=== PATIENT | male | born 1950 | race African-American/Black ===

== ENCOUNTER → 2017-07-16 | Day surgery (SDC) | payer MEDICARE ==
[~2017-07-16] MED LIST: AMLODIPINE BESYL5 MG PO; CEFTRIAXONE SOD 1 GM VIAL ONE; DEXAMETHASONE SOD PHOS INJ 4 MG/ML VIAL ONE; FENTANYL CITRATE/PF 100MCG/2 ML INJ ONE; FLOMAX0.4 MG PO; GENTAMICIN 120MG/NS 100ML 100 ML ONE; HYDROXYZINE HCL25 MG PO; IOPAMIDOL 610MG/1ML 300 MG/ML VIAL IV ONE; LIDOCAINE HCL 2% LOCAL INJ 5 ML SDV VIAL INJ ONE; METFORMIN HCL500 M1 PO; MIDAZOLAM HCL 2 MG/2 ML VIAL ONE; ONDANSETRON HCL INJ 2 MG/ML VIAL ONE; PROPOFOL IV EMULSION 10 MG/ML 20 ML VIAL ONE; SEVOFLURANE INHAL SOLN 250 ML PEN BTL ONE; SIMVASTATIN40 MG PO
--- OUTSIDE RECORDS SUMMARY | 2017-07-16 09:09 | XMS REPORT | Clinical Summary ---
Author Author [facility] Organization [facility] Address Unknown Phone Unavailable Care Team Providers Care Manager Data Warehouse Name Role Phone Hugh Santana MD PCP Allergies Active Allergy Reactions Severity Noted Date Comments Ciprofloxacin 09/18/2016 Iodine 09/18/2016 Shellfish Derived 09/18/2016 Current Medications Prescription Sig. Disp. Refills Start End Date Status Date hydrOXYzine (ATARAX) 25 Take 25 mg by mouth once Active MG tablet a week. lisinopril Take 20 mg by mouth 2 Active (PRINIVIL,ZESTRIL) 20 mg (two) times a day. tablet losartan (COZAAR) 50 MG Take 50 mg by mouth Active tablet daily. simvastatin (ZOCOR) 40 MG Take 40 mg by mouth Active tablet nightly. amLODIPine (NORVASC) 5 mg Take 5 mg by mouth daily. Active tablet aspirin (ECOTRIN) 81 MG Take 81 mg by mouth Active enteric coated tablet daily. cyanocobalamin 500 MCG Take 500 mcg by mouth Active tablet daily. FOLIC ACID/MV,IRON,MIN Take 1 capsule by mouth Active (CENTRUM ORAL) once. linagliptin-metformin Take 1 capsule by mouth 2 Active (JENTADUETO XR) 2.5-1,000 (two) times a day. mg tablet, IR & ER, biphasic 24hr tamsulosin (FLOMAX) 0.4 Take 0.4 mg by mouth Active mg capsule,extended daily. release 24hr Active Problems Problem Noted Date Combined form of senile cataract of both eyes 09/18/2016 Last Assessment & Plan: Mild. Early. Follow. MRx updated. Diabetes mellitus without complication 09/18/2016 Last Assessment & Plan: No signs of DR. Annual exams recommended. Letter to Dr. Max Irizarry Encounters Date Type Specialty Care Team Description 07/03/2017 Hospital Radiology Sandeep Michel, Enlarged prostate with Encounter urinary obstruction 06/23/2017 Transcribe Access Sandeep Michel, Enlarged prostate with Orders urinary obstruction (Primary Dx) 09/18/2016 Office Visit Ophthalmology Nasim López MD Diabetes mellitus without complication (Primary Dx); Combined form of senile cataract of both eyes after 07/15/2016 Family History Medical History Relation Name Comments Diabetes Brother Relation Name Status Comments Brother Social History Tobacco Use Types Packs/Day Years Used Date Never Smoker Alcohol Use Drinks/Week oz/Week Comments Yes OCCASIONAL Sex Assigned at Date Recorded Not on file Last Filed Vital Signs Not on file Plan of Treatment Health Maintenance Due Date Last Done Comments FOOT EXAM 09/20/1961 URINE MICROALBUMIN 09/20/1961 COLONOSCOPY 09/20/2001 ZOSTER VACCINE 2011 PNEUMOCOCCAL 09/20/2016 POLYSACCHARIDE VACCINE AGE 65 AND OVER PNEUMOCOCCAL-13 09/20/2016 INFLUENZA VACCINE 12/24/2016 OPHTHALMOLOGY EXAM 09/18/2017 09/18/2016 Results * ECG 12 lead (07/07/2017 2:12 PM) Component Value Ref Range Ventricular rate 73 Atrial rate 73 IL interval 152 QRSD interval 76 QT interval 386 QTC interval 425 P axis 1 52 QRS axis 1 39 T wave axis 6 EKG impression Normal sinus rhythm with sinus arrhythmia-Normal ECG-No previous ECGs available- Specimen Performing Laboratory [facility] [address] [place] [address] * US Prostate (07/03/2017 1:39 PM) Specimen Performing Laboratory [facility] [address] [place] [address] Narrative PROCEDURE:US PROSTATE CLINICAL HISTORY:N40.1 Benign prostatic hyperplasia with lower urinary tract symptoms, N13.8 Other obstructive and reflux uropathy, N40.1 COMPARISON:None. TECHNIQUE: A transrectal examination of the prostate gland was performed in transverse and sagittal views with color-flow Doppler interrogation. The seminal vesicles were also interrogated. FINDINGS: The prostate gland measures 5.4 cm x 4.6 cm x 5.3 cm. The peripheral zone is homogeneous. No focal lesions are identified. Heterogeneity in echotexture is demonstrated of the central zone with calcification of the prostate at the junction of the central and peripheral zone. No gross abnormality of the seminal vesicles is seen. IMPRESSION: Abnormal study. Benign prostatic hyperplasia. No focal lesions are identified in the peripheral zone. No abnormality of the seminal vesicles is seen. [id number] . 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 TECHNIQUE: A transrectal examination of the prostate gland was performed in transverse and sagittal views with color-flow Doppler interrogation. The seminal vesicles were also interrogated. FINDINGS: The prostate gland measures 5.4 cm x 4.6 cm x 5.3 cm. The peripheral zone is homogeneous. No focal lesions are identified. Heterogeneity in echotexture is demonstrated of the central zone with calcification of the prostate at the junction of the central and peripheral zone. No gross abnormality of the seminal vesicles is seen. IMPRESSION: Abnormal study. Benign prostatic hyperplasia. No focal lesions are identified in the peripheral zone. No abnormality of the seminal vesicles is seen. [id number] . after 07/15/2016 Insurance Payer Benefit Subscriber ID Type Phone Address Plan / Group [facility] [employer] UNITED/[employer] xxxxxxxxx HMO Belinda BELLO
--- NOTE | 2017-07-16 13:12 | Operative Report ---
DATE OF PROCEDURE: July 16, 2017 PREOPERATIVE DIAGNOSES 1. Prostatic obstruction. 2. Rule out carcinoma of the prostate. 3. Abnormal prostate-specific antigen. POSTOPERATIVE DIAGNOSES 1. Prostatic obstruction. 2. Rule out carcinoma of the prostate. 3. Abnormal prostate-specific antigen. OPERATION 1. Transrectal ultrasound of the prostate. 2. Transrectal ultrasound-guided needle biopsies. 3. Cystourethroscopy. EXTERMINATOR: Dr. Wright ANESTHETIC: General. INDICATIONS: Mr. Ortiz is a 66-year-old male who presented with a chief complaint of lower urinary tract obstructive symptoms and elevated PSA. Rectal exam showed an enlarged prostate gland with hard, irregular areas at the prostatic base. His PSA was 4.6. DESCRIPTION OF PROCEDURE: This patient was placed on the table in the lithotomy position. Transrectal ultrasound of the prostate was performed. The prostate gland measured 4.51 x 3.94 x 4.56 with a total volume of 43.27 mL. There were several hypoechoic areas especially at the left base. Transrectal ultrasound-guided biopsies were obtained and multiple biopsies from the abnormal hypoechoic area and from the normal-appearing prostate to map it for any multifocal carcinoma. This patient was then prepped and draped in a sterile manner. A #23-[id number] cystoscope was used, and cystourethroscopy was performed. It was noted that the urethra was normal. The prostatic urethra was about 3.5 to 4 cm long, bilobar and occlusive. There were a lot of abnormal, fluffy tissues on the surface of the prostate on both lobes. Cystoscopy was then performed using both right-angle and foroblique lens. It was noted that the bladder mucosa was normal. The bladder wall was moderately to markedly trabeculated. Both ureteral orifices were seen and were in normal position, configuration, and efflux. The bladder was drained and the cystoscope removed. The patient was taken to the recovery room in satisfactory condition after tolerating the procedure well. Plan for this patient is to be placed on Ceftin 500 mg 1 twice a day for 1 week, Ultracet tablet 1 every 6 hours p.r.n. and was given 20. He is to return to the office in 1 week. At that time, results of the biopsy will be back. Job#: [id number]
== END | disposition home or self-care (01) ==
LOC: OR 09:06
PROVIDERS: ATTEND Specialist
DX: C61 Malignant neoplasm of prostate (principal); N40.1 Benign prostatic hyperplasia with lower urinary tract symptoms; N13.8 Other obstructive and reflux uropathy; N32.89 Other specified disorders of bladder; G47.33 Obstructive sleep apnea (adult) (pediatric); I10 Essential (primary) hypertension; E11.9 Type 2 diabetes mellitus without complications; K57.90 Diverticulosis of intestine, part unspecified, without perforation or abscess without bleeding; J45.909 Unspecified asthma, uncomplicated
CPT/HCPCS: 36415; 55700; 76872; 76942; 82948; 88305; J0696; J1100; J1580; J2001; J2250; J2405